=== PATIENT | female | born 2000 | race Caucasian/White ===

== ENCOUNTER 2020-09-02 13:30 | Outpatient (CLI) | payer OTHER ==
[~2020-09-02 13:30] MED LIST: COLACE 100MG C100 MG PO; IBUPROFEN600 MG PO; LORTAB 5-325 M1 EACH PO; MACROBID 100 M100 MG PO; NAPROSYN500 MG PO; PRENATAL VITAM1 EAC8 PO; ZOFRAN ODT 4 MG4 MG SL
== END 2020-09-02 16:45 | disposition home or self-care (01) ==
LOC: GENOP 13:30
DX: O99.891 Other specified diseases and conditions complicating pregnancy (principal); M54.9 Dorsalgia, unspecified; R10.9 Unspecified abdominal pain; Z3A.38 38 weeks gestation of pregnancy
CPT/HCPCS: 81001; G0463

== ENCOUNTER → 2020-09-10 | Outpatient (CLI) | payer OTHER ==
[~2020-09-10] MED LIST changes: +DOCUSATE SODIU100 MG PO
[2020-09-10 13:19] LABS: HEMOGLOBIN 12.1 gm/dl (12.3-15.3); RED BLOOD COUNT 4.01 M/UL (4.00-5.10); WHITE BLOOD COUNT 13.3 K/UL (4.5-11.0)
== END ==
LOC: GENOP 12:43
PROVIDERS: Obstetrics & Gynecology
DX: Z53.8 Procedure and treatment not carried out for other reasons (principal)
CPT/HCPCS: 36415; 81001; 85025

== ENCOUNTER 2020-09-11 05:23 | Inpatient (IN) | payer OTHER ==
[~2020-09-11] VITALS: Ht 160 cm; Wt 73.9 kg
[~2020-09-11 05:23] MED LIST changes: -DOCUSATE SODIU100 MG PO
[2020-09-11] MEDS ORDERED: DOCUSATE SODIU100 MG PO (08:51)
[2020-09-11] MEDS ORDERED: LORTAB 5-325 M1 EACH PO (08:51)
[2020-09-11] MEDS ORDERED: IBUPROFEN600 MG PO (08:51)
[2020-09-12 06:40] LABS: HEMOGLOBIN 10.9 gm/dl (12.3-15.3)
== END 2020-09-12 14:48 | disposition home or self-care (01) | DRG 787 ==
LOC: OB 05:23
PROVIDERS: ADMIT Obstetrics & Gynecology
PROC: 10D00Z1 Extraction of Products of Conception, Low, Open Approach (ICD-10-PCS; principal; 2020-09-11 07:30)
DX: O34.211 Maternal care for low transverse scar from previous cesarean delivery (principal); O98.32 Other infections with a predominantly sexual mode of transmission complicating childbirth; O99.834 Other infection carrier state complicating childbirth; Z3A.39 39 weeks gestation of pregnancy; Z37.0 Single live birth; O99.344 Other mental disorders complicating childbirth; F32.9 Major depressive disorder, single episode, unspecified; A63.0 Anogenital (venereal) warts; Z22.9 Carrier of infectious disease, unspecified; Z80.1 Family history of malignant neoplasm of trachea, bronchus and lung; Z84.89 Family history of other specified conditions; Z83.49 Family history of other endocrine, nutritional and metabolic diseases; Z20.822 Contact with and (suspected) exposure to COVID-19; Z28.21 Immunization not carried out because of patient refusal
CPT/HCPCS: 36415; 81001; 82800; 85014; 85018; 85025; C9113; J0690; J1885; J2250; J2274; J2405; J2550; J2590; J3010; J3430; J7120; U0002

== ENCOUNTER 2021-11-01 17:17 | Emergency (ER) | payer OTHER ==
[~2021-11-01 17:17] MED LIST changes: +DOCUSATE SODIU100 MG PO
[2021-11-01 18:26] LABS: BUN/CREATININE RATIO 20 (0-10)
[2021-11-01 19:08] LABS: HEMOGLOBIN 13.3 gm/dl (12.3-15.3); RED BLOOD COUNT 4.48 M/UL (4.00-5.10); WHITE BLOOD COUNT 7.7 K/UL (4.5-11.0)
[2021-11-01] MEDS ORDERED: IBU600 MG PO (21:23)
[2021-11-01] MEDS ORDERED: OMNICEF 300 MG300 MG PO (21:23)
[2021-11-01] MEDS ORDERED: ZOFRAN ODT 4 MG4 MG PO (21:23)
== END 2021-11-01 21:46 | disposition home or self-care (01) ==
LOC: ER1 17:17
PROVIDERS: Emergency Medicine
DX: N83.201 Unspecified ovarian cyst, right side (principal); N39.0 Urinary tract infection, site not specified; Z87.442 Personal history of urinary calculi
CPT/HCPCS: 71045; 80053; 81001; 82550; 82553; 82962; 83690; 84484; 84703; 85025; 85379; 93005; 96374; 96375; 96376; 99284; J0696; J2270; J2405; Q9967

== ENCOUNTER 2022-03-30 14:42 | Emergency (ER) | payer OTHER ==
[~2022-03-30 14:42] MED LIST changes: +IBU600 MG PO; +OMNICEF 300 MG300 MG PO; +ZOFRAN ODT 4 MG4 MG PO
[2022-03-30 15:54] LABS: HEMOGLOBIN 13.5 gm/dl (12.3-15.3); RED BLOOD COUNT 4.5 M/UL (4.00-5.10); WHITE BLOOD COUNT 5.2 K/UL (4.5-11.0)
[2022-03-30 16:56] LABS: BUN/CREATININE RATIO 17 (0-10)
== END 2022-03-30 19:10 | disposition home or self-care (01) ==
LOC: ER1 14:42
PROVIDERS: Preventive Medicine Occupational Medicine
DX: G43.909 Migraine, unspecified, not intractable, without status migrainosus (principal); Z20.822 Contact with and (suspected) exposure to COVID-19
CPT/HCPCS: 0240U; 70450; 70486; 80048; 85025; 85652; 86140; 96374; 96375; 99284; J0696; J1200; J2550; J2765